=== PATIENT | female | born 1965 | race Caucasian/White ===

== ENCOUNTER 2019-04-22 03:54 | Emergency (ER) | payer OTHER ==
[~2019-04-22] VITALS: Ht 165.1 cm; Wt 86.2 kg
[2019-04-22] MEDS ORDERED: Inderal40 MG (04:16)
[2019-04-22] MEDS ORDERED: CYCL10 PO (04:16)
[2019-04-22] MEDS ORDERED: OMEP20ER (04:17)
[2019-04-22] MEDS ORDERED: Keflex500 MG PO (06:12)
== END 2019-04-22 06:30 | disposition home or self-care (01) ==
LOC: ER 03:54
DX: H00.014 Hordeolum externum left upper eyelid (principal); K21.9 Gastro-esophageal reflux disease without esophagitis; F17.210 Nicotine dependence, cigarettes, uncomplicated; Z79.899 Other long term (current) drug therapy; Z88.6 Allergy status to analgesic agent; Z91.040 Latex allergy status; Z88.8 Allergy status to other drugs, medicaments and biological substances
CPT/HCPCS: 99283; J1100

== ENCOUNTER 2019-04-24 12:24 | Emergency (ER) | payer OTHER ==
[~2019-04-24] VITALS: Ht 165.1 cm; Wt 88.5 kg
[~2019-04-24 12:24] MED LIST: CYCL10 PO; Inderal40 MG; Keflex500 MG PO; OMEP20ER
[2019-04-24 12:59] LABS: BASOPHILS ABSOLUTE AUTO 0.06 K/mm3 (0.00-0.23); BASOPHILS PERCENT AUTO 1 % (0-2); EOSINOPHILS ABSOLUTE AUTO 0.09 K/mm3 (0.00-0.68); EOSINOPHILS PERCENT AUTO 1 % (0-6); Hematocrit 47.4 % (33.0-51.0); Hemoglobin 15.5 g/dL (11.5-16.0); IMMATURE GRAN ABSOLUTE AUTO 0.03 K/mm3 (0.00-0.10); IMMATURE GRAN PERCENT AUTO 0 % (0-1); LYMPHOCYTES ABSOLUTE AUTO 4.76 K/mm3 (0.84-5.20); LYMPHOCYTES PERCENT AUTO 46 % (21-46); MONOCYTES ABSOLUTE AUTO 0.94 K/mm3 (0.16-1.47); MONOCYTES PERCENT AUTO 9 % (4-13); Mean Corpuscular HGB 28.5 pg (26.0-34.0); Mean Corpuscular HGB Conc 32.7 g/dL (31.5-36.5); Mean Corpuscular Volume 87 fL (80-100); Mean Platelet Volume 10.2 fL (9.1-12.4); NEUTROPHILS ABSOLUTE AUTO 4.47 K/mm3 (1.96-9.15); NEUTROPHILS PERCENT AUTO 43 % (41-73); Platelet Count 248 K/mm3 (150-400); RDW Coefficient Variation 13.1 % (11.7-14.2); RDW Standard Deviation 41.4 fL (35.1-46.3); Red Blood Cell Count 5.43 M/mm3 (3.80-5.20); White Blood Cell Count 10.35 K/mm3 (4.00-11.30)
[2019-04-24 13:21] LABS: Alanine Aminotransfer (ALT/SGP 19 U/L (12-78); Albumin, Blood 3.5 g/dL (3.4-5.0); Alk Phos 103 U/L (50-136); Anion Gap 6 mmol/L (6-16); Aspartate Aminotrans (AST/SGOT 13 U/L (12-37); Bilirubin, Total 0.3 mg/dL (0.1-1.0); Blood Urea Nitrogen 12 mg/dL (8-24); Bun/Creatinine Ratio 14.8 (12.0-20.0); CO2, Blood 27 mmol/L (21-32); Calcium, Blood 8.9 mg/dL (8.5-10.1); Chloride, Blood 111 mmol/L (98-108); Creatinine, Blood 0.81 mg/dL (0.40-1.00); Globulin, Blood 3.6 g/dL (2.2-4.0); Glomerular Filtration Rate >60 (60-); Glucose, Blood 87 mg/dL (70-99); Sodium, Blood 144 mmol/L (136-145); Total Protein, Blood 7.1 g/dL (6.4-8.2)
[2019-04-24] MEDS ORDERED: ERYT1OIN LEFTEYE (17:06)
[2019-04-24] MEDS ORDERED: Zovirax800 MG PO (17:06)
== END 2019-04-24 17:19 | disposition home or self-care (01) ==
LOC: ER 12:24
PROVIDERS: Physician Assistant
DX: H00.014 Hordeolum externum left upper eyelid (principal); B00.1 Herpesviral vesicular dermatitis; K21.9 Gastro-esophageal reflux disease without esophagitis; F17.210 Nicotine dependence, cigarettes, uncomplicated
CPT/HCPCS: 36415; 80053; 85025; 99283

== ENCOUNTER 2021-07-17 09:36 | Day surgery (SDC) | payer OTHER ==
[2021-07-15 17:41] LABS: Anion Gap 4 mmol/L (6-16); Blood Urea Nitrogen 14 mg/dL (8-24); Bun/Creatinine Ratio 17.8 (12.0-20.0); CO2, Blood 26 mmol/L (21-32); Calcium, Blood 8.8 mg/dL (8.5-10.1); Chloride, Blood 108 mmol/L (98-108); Creatinine, Blood 0.79 mg/dL (0.40-1.00); Glomerular Filtration Rate >60 (60-); Glucose, Blood 124 mg/dL (70-99); Potassium, Blood 3.9 mmol/L (3.5-5.5); Sodium, Blood 138 mmol/L (136-145)
[~2021-07-17] VITALS: Ht 165.1 cm; Wt 81.0 kg
[~2021-07-17 09:36] MED LIST changes: +ERYT1OIN LEFTEYE; +Zovirax800 MG PO
[2021-07-17] MEDS ORDERED: FAMO10 PO (10:09)
[2021-07-17] MEDS ORDERED: FLUO10 PO (10:09)
[2021-07-17] MEDS ORDERED: PANT20 PO (10:09)
--- NOTE | 2021-07-17 12:26 | NUR ---
07/17/21 1226 Danni Chavarria DISCHARGE INSTRUCTIONS REVIEWED WITH PT AND MOSES(SON). ALL QUESTIONS ASWERED. PT TOLERATING PO FLUIDS AND CRACKERS WELL. DENIES NAUSEA OR PAIN. IS READY FOR DISCHARGE HOME. VSS.
== END 2021-07-17 12:25 | disposition home or self-care (01) ==
LOC: ORSCSDS 09:36
PROVIDERS: Obstetrics & Gynecology
PROC: 0UBC7ZX Excision of Cervix, Via Natural or Artificial Opening, Diagnostic (ICD-10-PCS; principal; 2021-07-17 11:00)
DX: D06.0 Carcinoma in situ of endocervix (principal); N95.0 Postmenopausal bleeding; F17.210 Nicotine dependence, cigarettes, uncomplicated; K21.9 Gastro-esophageal reflux disease without esophagitis; Z79.899 Other long term (current) drug therapy
CPT/HCPCS: 36415; 80048; 88305; J0171; J1100; J1885; J2250; J2405; J2704; J3010; J7120